=== PATIENT | male | born 1960 | race Two or more races ===

== ENCOUNTER → 2023-04-14 | Outpatient (CLI) | payer BC | END | disposition home or self-care (01) | LOC: LAB 08:43 | PROVIDERS: ATTEND Internal Medicine | DX: R22.1 Localized swelling, mass and lump, neck (principal) | CPT/HCPCS: 36415; 82565; 84520 ==

== ENCOUNTER → 2023-05-23 | Outpatient (CLI) | payer BC | END | disposition home or self-care (01) | LOC: LAB 13:17 | PROVIDERS: ATTEND Internal Medicine | DX: Z12.11 Encounter for screening for malignant neoplasm of colon (principal); Z00.00 Encounter for general adult medical examination without abnormal findings; E78.5 Hyperlipidemia, unspecified | CPT/HCPCS: 82270 ==

== ENCOUNTER → 2023-10-10 | Outpatient (CLI) | payer BC | END | disposition home or self-care (01) | LOC: LAB 15:58 | PROVIDERS: ATTEND Family Medicine | DX: D48.5 Neoplasm of uncertain behavior of skin (principal) ==

== ENCOUNTER → 2023-12-05 | Outpatient (CLI) | payer BC | END | disposition home or self-care (01) | LOC: LAB 13:32 | PROVIDERS: ATTEND Family Medicine | DX: D48.5 Neoplasm of uncertain behavior of skin (principal) ==

== ENCOUNTER → 2024-02-09 | Outpatient (CLI) | payer BC ==
[2024-02-09 15:59] LABS: Albumin 4.8 g/dL (3.2-4.8); Bilirubin, Direct 0.2 mg/dL (<0.3); Total Protein 6.7 g/dL (5.7-8.2)
[2024-02-09 16:04] LABS: Bilirubin, Total 0.5 mg/dL (0.2-1.0)
[2024-02-09 17:48] LABS: Folate (Folic Acid) 16.5 ng/mL (>5.38)
== END | disposition home or self-care (01) ==
LOC: LAB 15:15
PROVIDERS: ATTEND Internal Medicine
DX: E78.5 Hyperlipidemia, unspecified (principal); R53.83 Other fatigue
CPT/HCPCS: 36415; 80076; 82306; 82607; 82746; 84403; 84443

== ENCOUNTER 2024-11-05 06:15 | Outpatient (CLI) | payer BC ==
[2024-11-05 07:43] LABS: Alkaline Phosphatase 97 U/L (46-116); Anion Gap 9 (5-15); Aspartate Aminotransferase 25 U/L (<34); Calcium 10.2 mg/dL (8.7-10.4); Carbon Dioxide 29 mmol/L (20-31); Chloride 106 mmol/L (98-107); LDL Cholesterol 69 mg/dL (< 100); Potassium 4.7 mmol/L (3.5-5.1); Sodium 144 mmol/L (136-145); Total Protein 6.9 g/dL (5.7-8.2); Triglycerides 98 mg/dL (< 150)
[2024-11-05 07:44] LABS: Bilirubin, Total 0.5 mg/dL (0.2-1.0); Cholesterol 123 mg/dL (< 200)
[2024-11-05 07:47] LABS: Alanine Aminotransferase 53 U/L (7-40); Glucose 107 mg/dL (74-106); HDL Cholesterol 35 mg/dL (40-59)
[2024-11-05 08:18] LABS: BUN/Creatinine Ratio 9.6 (10.0-20.0)
[2024-11-05 08:28] LABS: Blood Urea Nitrogen 10 mg/dL (9-23)
== END 2024-11-05 17:00 | disposition home or self-care (01) ==
LOC: LAB 06:15
PROVIDERS: ATTEND Internal Medicine
DX: E78.5 Hyperlipidemia, unspecified (principal); E55.9 Vitamin D deficiency, unspecified; Z12.11 Encounter for screening for malignant neoplasm of colon
CPT/HCPCS: 36415; 80053; 80061; 83036; 84153

== ENCOUNTER 2024-11-15 15:50 | Outpatient (CLI) | payer BC | END 2024-11-15 17:00 | disposition home or self-care (01) | LOC: LAB 15:50 | PROVIDERS: ATTEND Internal Medicine | DX: E78.5 Hyperlipidemia, unspecified (principal); E55.9 Vitamin D deficiency, unspecified; Z12.11 Encounter for screening for malignant neoplasm of colon | CPT/HCPCS: 82270 ==

== ENCOUNTER 2024-11-29 08:58 | Outpatient (CLI) | payer BC ==
[2024-11-29 10:32] LABS: Alkaline Phosphatase 92.0 U/L (46-116); Bilirubin, Direct 0.2 mg/dL (<0.3); Bilirubin, Total 0.5 mg/dL (0.2-1.0); Total Protein 6.6 g/dL (5.7-8.2)
[2024-11-29 10:34] LABS: Alanine Aminotransferase 54.0 U/L (7-40); Albumin 4.9 g/dL (3.2-4.8)
[2024-11-29 11:06] LABS: Hepatitis B Surface Antigen Negative (Negative); Hepatitis C Antibody Negative (Negative)
[2024-11-30 10:07] LABS: Immunoglobulin A 78 mg/dL (61-437); Immunoglobulin G, Serum 597 mg/dL (603-1613); Immunoglobulin M 41 mg/dL (20-172)
[2024-11-30 16:07] LABS: Anti-Nuclear Antibody Direct Negative (Negative); Anti-dsDNA Antibody <1 IU/mL (0-9); Antiscleroderma-70 Antibody <0.2 AI (0.0-0.9); Sjogren's Anti-SS-A Antibody <0.2 AI (0.0-0.9); Sjogren's Anti-SS-B Antibody <0.2 AI (0.0-0.9)
== END 2024-11-29 17:00 | disposition home or self-care (01) ==
LOC: LAB 08:58
PROVIDERS: ATTEND Internal Medicine
DX: R94.5 Abnormal results of liver function studies (principal)
CPT/HCPCS: 36415; 80074; 80076; 82103; 82105; 82390; 82728; 82784; 86160; 86225; 86235; 86376; 86431

== ENCOUNTER 2025-03-22 15:29 | Outpatient (CLI) | payer BC ==
[2025-03-22 16:30] LABS: Urine Protein, UAD Negative (Negative)
[2025-03-22 16:34] LABS: Hematocrit 44.2 % (41.0-53.0); Hemoglobin 15.7 g/dL (13.5-17.5); Mean Corpuscular Hemoglobin 31.5 pg (28.0-32.0); Mean Corpuscular Volume 88.7 fL (80.0-100.0); Nucleated Red Blood Cells % 0.0 %
[2025-03-22 16:45] LABS: Albumin 4.8 g/dL (3.2-4.8); Alkaline Phosphatase 100 U/L (46-116); Bilirubin, Total 0.4 mg/dL (0.2-1.0); Total Protein 7.1 g/dL (5.7-8.2)
[2025-03-22 16:46] LABS: Alanine Aminotransferase 45 U/L (7-40); Bilirubin, Direct < 0.1 mg/dL (<0.3)
== END 2025-03-22 17:00 | disposition home or self-care (01) ==
LOC: LAB 15:29
PROVIDERS: ATTEND Internal Medicine
DX: E78.5 Hyperlipidemia, unspecified (principal); E55.9 Vitamin D deficiency, unspecified; J98.59 Other diseases of mediastinum, not elsewhere classified; R91.8 Other nonspecific abnormal finding of lung field; R74.02 Elevation of levels of lactic acid dehydrogenase [LDH]
CPT/HCPCS: 36415; 80076; 81001; 82103; 82607; 85025